=== PATIENT | male | born 1980 | race Caucasian/White ===

== ENCOUNTER 2019-05-02 02:55 | Emergency (ER) | payer MEDICAID ==
[~2019-05-02] VITALS: Ht 172.7 cm; Wt 82.1 kg
[2019-05-02 03:01] VITALS: BP 149/74
--- NOTE | 2019-05-02 03:05 | NUR ---
PT AMBULATED TO BED 2.
[2019-05-02] MEDS ORDERED: NACL 0.9% 1,000 ML IV ONE (03:30)
[2019-05-02] MEDS ORDERED: KETOROLAC 30 MG/ML VIAL IVP ONE (03:30)
[2019-05-02] MEDS ORDERED: ONDANSETRON 4 MG/2 ML VIAL IVP ONE (03:30)
--- NOTE | 2019-05-02 03:31 | NUR ---
38 Y/O MALE C/O SUDDEN ONSET EPIGASTRIC ABDOMEN PAIN ASSOCIATED N/V SINCE 190. 2 EPISODES OF VOMITTING. ABDOMINAL PAIN IS SHARP AND 10/10. PATIENT TOOK A MOTRIN WITH NO RELIEF. NKA NO PMH
[2019-05-02 03:45] LABS: BASOPHILS % (AUTO) 0.4 % (0.0-2.0); EOSINOPHILS # (AUTO) 0.1 K/uL (0-0.4); EOSINOPHILS % (AUTO) 0.8 % (0.0-4.0); HEMATOCRIT 46.2 % (36-52); HEMOGLOBIN 16.3 g/dL (12.0-18.0); LYMPHOCYTES # (AUTO) 1.4 K/uL (2.0-11.5); LYMPHOCYTES % (AUTO) 15.2 % (20.5-51.1); MEAN CORPUSCULAR HEMOGLOBIN 33 pg (27-31); MEAN CORPUSCULAR HGB CONC 35 g/dL (33-37); MEAN CORPUSCULAR VOLUME 94.8 fL (80-94); MONOCYTES # (AUTO) 0.3 K/uL (0.8-1.0); MONOCYTES % (AUTO) 3.6 % (1.7-9.3); NEUTROPHILS # (AUTO) 7.2 K/uL (1.8-7.7); PLATELET COUNT (AUTO) 142 K/uL (140-450); RED BLOOD CELL COUNT(AUTO) 4.88 MIL/uL (4.20-6.10); RED CELL DISTRIBUTION WIDTH 12.8 % (11.6-13.7)
[2019-05-02 04:16] LABS: ANION GAP 12.1 (8-16); CARBON DIOXIDE 29.1 mmol/L (21-32); CREATININE 1.2 mg/dL (0.7-1.3); POTASSIUM 3.2 mmol/L (3.5-5.1)
--- NOTE | 2019-05-02 04:20 | NUR ---
PT. TAKEN TO CT.
[2019-05-02 04:21] LABS: ALBUMIN 4.3 g/dL (3.4-5.0); TOTAL BILIRUBIN 0.5 mg/dL (0.0-1.0)
--- NOTE | 2019-05-02 04:59 | NUR ---
PT. IS SLEEPING AT THIS TIME. VSS. SIDE RAILS X1
[2019-05-02] MEDS ORDERED: MORPHINE SULFATE 2 MG/ML SYR IVP ONE (05:45)
[2019-05-02 06:29] VITALS: BP 122/78
--- NOTE | 2019-05-02 06:29 | NUR ---
Patient discharged with v/s stable. Written and verbal after care instructions given and explained. Patient alert, oriented and verbalized understanding of instructions. Ambulatory with steady gait. All questions addressed prior to discharge. ID band removed. Patient advised to follow up with PMD. Rx of MOTRIN 800MG AND ZOFRAN 4MG given. Patient educated on indication of medication including possible reaction and side effects. Opportunity to ask questions provided and answered.
--- NOTE | 2019-05-08 06:58 | NUR ---
LATE ENTRY: ON 05/02/19 AT 0606, 2MG/1ML OF MORPHINE PULLED FROM PYXIS 1 MG OF MORPHINE WASTED WITH JAVIER DE LA TORRE RN.
--- NOTE | 2019-05-08 07:06 | NUR ---
LATE ENTRY: 999ML IV BOLUS OF N/S FINISHED AT 0445. 999MLS OF NORMAL SALINE INFUSED.
== END 2019-05-02 06:29 | disposition home or self-care (01) ==
LOC: MED 02:55
DX: R10.9 Unspecified abdominal pain (principal); R11.2 Nausea with vomiting, unspecified
CPT/HCPCS: 36415; 71045; 74176; 80053; 83605; 84484; 85025; 85610; 85730; 87040; 93005; 96361; 96374; 96375; 99284; J1885; J2270; J2405; J7030

== ENCOUNTER 2019-08-11 06:36 | Inpatient (IN) | payer MEDICAID ==
[~2019-08-11] VITALS: Ht 175.3 cm; Wt 81.6 kg
[2019-08-11 06:40] VITALS: BP 144/87
--- NOTE | 2019-08-11 06:40 | NUR ---
TO BED # 06 AMBULATORY
--- NOTE | 2019-08-11 06:52 | NUR ---
Dr. Keller examining patient.
[2019-08-11] MEDS ORDERED: MORPHINE SULFATE 4 MG/ML SYR IVP ONE ×2 (06:55→09:30)
[2019-08-11] MEDS ORDERED: ONDANSETRON 4 MG/2 ML VIAL IVP ONE (06:55)
[2019-08-11] MEDS ORDERED: NACL 0.9% 1,000 ML IV SCH (06:55)
--- NOTE | 2019-08-11 07:00 | NUR ---
IV ACCESS ESTABLISHED, IVF OF NS WIDE OPEN STARTED, ORDERED MECICATIONS ADMINISTERED. LABS WERE DRAWN EARLIER BY THE CLOTHING SUPERVISOR. PATIENT MADE COMFORTALE. REPORT GIVEN TO THE ON COMING STAFF FOR CONTINUED EXPERT CARE.
[2019-08-11 07:25] LABS: BASOPHILS % (AUTO) 0.3 % (0.0-2.0); EOSINOPHILS # (AUTO) 0.1 K/uL (0-0.4); EOSINOPHILS % (AUTO) 1.2 % (0.0-4.0); HEMATOCRIT 48.4 % (36-52); HEMOGLOBIN 16.8 g/dL (12.0-18.0); LYMPHOCYTES # (AUTO) 1.4 K/uL (2.0-11.5); LYMPHOCYTES % (AUTO) 15.4 % (20.5-51.1); MEAN CORPUSCULAR HEMOGLOBIN 34 pg (27-31); MEAN CORPUSCULAR HGB CONC 35 g/dL (33-37); MEAN CORPUSCULAR VOLUME 96.6 fL (80-94); MONOCYTES # (AUTO) 0.5 K/uL (0.8-1.0); MONOCYTES % (AUTO) 5.3 % (1.7-9.3); NEUTROPHILS % (AUTO) 77.8 % (42.2-75.2); PLATELET COUNT (AUTO) 137 K/uL (140-450); RED BLOOD CELL COUNT(AUTO) 5.01 MIL/uL (4.20-6.10); RED CELL DISTRIBUTION WIDTH 12.9 % (11.6-13.7)
--- NOTE | 2019-08-11 07:49 | NUR ---
PT RESTING IN BED. STATED STILL HAVE PAIN AFTER PAIN MEDS. EXPLAINED TO PT IT TAKES TIME FOR PAIN MEDS TO KICK IN, PT VERBALIZED UNDERSTANDING, WILL CONTINUE TO MONITOR. Addendum: 08/11/19 at 0756 by LESLY ASKED PT FOR URINE SAMPLE. PT STATED HE DOES NOT HAVE URINE YET. WILL F/U.
[2019-08-11 07:50] LABS: ALBUMIN 3.7 g/dL (3.4-5.0); ANION GAP 12.7 (8-16); CARBON DIOXIDE 29.4 mmol/L (21-32); POTASSIUM 4.1 mmol/L (3.5-5.1); TOTAL BILIRUBIN 0.5 mg/dL (0.0-1.0)
--- NOTE | 2019-08-11 08:18 | NUR ---
Pt ambulated to restroom with steady gait. Pt provided with UA cup for specimen.
[2019-08-11 08:57] LABS: APPEARANCE,URINE CLEAR (CLEAR); BILIRUBIN,URINE NEGATIVE (NEGATIVE); BLOOD, URINE NEGATIVE (NEGATIVE); COLOR,URINE YELLOW (YELLOW); LEUKOCYTE ESTERASE ,URINE NEGATIVE (NEGATIVE); NITRITE, URINE NEGATIVE (NEGATIVE); UGLUCOSE NEGATIVE (NEGATIVE)
--- NOTE | 2019-08-11 10:11 | NUR ---
PT CAME BACK BY WHEELCHAIR PER TECH. PT STATED THE PAIN STILL 10/10 AFTER THE SECOND TIME MORPHINE 4 MG GIVEN. NOTIDIED .
[2019-08-11] MEDS ORDERED: HYDROmorphone PFS 2 MG/ML SYR IVP ONE (10:45)
[2019-08-11] MEDS ORDERED: PIPERACILLIN/TAZOBACTAM 4.5 GM in DEXTROSE 5% 100 ML IV ONE (10:45)
[2019-08-11] MEDS ORDERED: ONDANSETRON 4 MG/2 ML VIAL IVP PRN ×2 (10:55→21:05)
[2019-08-11] MEDS ORDERED: ACETAMINOPHEN 325 MG TAB PO PRN (10:55)
[2019-08-11] MEDS ORDERED: PIPERACILLIN/TAZOBACTAM 2.25 GM VIAL IV ONE (10:57)
[2019-08-11 11:35] VITALS: BP 107/57
--- NOTE | 2019-08-11 11:35 | NUR ---
Pt admitted to room 119B from ED via wheelchair. Received report from ED nurse Amirah. Pt amb to bed with steady gait, laid down right-side lying & guarding his abd. Pt states he has 5/10 cramping abd pain but is tolerable & "dont need any more pain meds right now." Pt [id number], able to follow commands. Oriented to room & unit. Able to return demonstrate proper use of call light & bed controls. Right AC IV intact & asymtomatic with Zosyn 50ml bag partially infused. Call light within reach. Will cont to monitor.
--- NOTE | 2019-08-11 11:35 | NUR ---
PT TRASNFERRED TO TELE 119 B. REPORT GIVEN TO MICAH. [facility] PT CALLED HIS TO LET HER KNOW SHE WILL STAY HOSPITAL . PT STATED HE DOES NOT HAVE PCP. VITAL STABLE.
[2019-08-11 12:16] LABS: BARBITURATE, URINE NEG. ng/ml (NEG <=200); BENZODIAZEPINE, URINE NEG. ng/mL (NEG <=200); CANNABINOID, URINE NEG. ng/mL (NEG <=50); COCAINE, URINE NEG. ng/mL (NEG <=300); OPIATE, URINE NEG. ng/mL (NEG <=2000); PHENCYCLIDINE SCREEN,URINE NEG. ng/mL (NEG <=25)
[2019-08-11 12:45] LABS: PROTHROMBIN TIME 9.7 secs (10.8-13.4)
--- NOTE | 2019-08-11 13:00 | NUR ---
PT RESTING IN BED. RESPIRATION ARE EVEN AND UNLABORED ON ROOM AIR, NO SIGNS OF DISTRESS. CALL LIGHT WITHIN REACH.
[2019-08-11 13:04] LABS: FREE T4 (FREE THYROXINE) 0.88 ng/dL (0.76-1.46); MAGNESIUM 1.7 mg/dL (1.8-2.4); PHOSPHORUS 2.5 mg/dL (2.5-4.9); THYROID STIMULATING HORMONE 1.54 uIU/mL (0.34-3.74)
[2019-08-11] MEDS: NACL 0.9% 1,000 ML IV SCH ×2 (14:40→23:50)
--- NOTE | 2019-08-11 15:20 | NUR ---
PT IN BED GRIMACING, STATES HE IS IN PAIN, 03/20. WILL MEDICATE PT WITH NORCO AND ZOFRAN FOR NAUSEA. AT BEDSIDE. CALL LIGHT WITHIN REACH.
[2019-08-11] MEDS: HYDROcodone/APAP 7.5/325 MG 1 TAB PO PRN (15:38)
[2019-08-11 16:00] VITALS: BP 109/57
[2019-08-11] MEDS ORDERED: MORPHINE SULFATE 4 MG/ML SYR IVP PRN (16:05)
--- NOTE | 2019-08-11 16:38 | NUR ---
WENT TO PT'S ROOM TO DO PAIN REASSESSMENT, PT ASLEEP. AT BEDSIDE. INDICATED SHE WANTED TO BE INFORMED OF THE PT'S CONDITION. AROSE PT TO ASK IF IT WAS OKAY TO SHARE INFORMATION. NOTIFIED DR. DAVILA THE PT'S FAMILY WANTED TO SPEAK WITH HER.
[2019-08-11] MEDS ORDERED: PANTOPRAZOLE 40 MG INJ VIAL IVP SCH (17:00)
--- NOTE | 2019-08-11 17:10 | NUR ---
GAVE PT HIS PROTONIX IVP, PT TOLERATED WELL, PT AWOKE TO ACKNOWLEDGE THE MEDICATION, BUT WENT BACK TO SLEEP. PT IS STABLE, RESPIRATION ARE EVEN AND UNLABORED ON ROOM AIR. AT THE BEDSIDE. CALL LIGHT WITHIN REACH.
--- NOTE | 2019-08-11 19:10 | NUR ---
GAVE BEDSIDE REPORT TO NIGHT NURSE, BATOOL, FOR CONTINUITY OF CARE. PT IS STABLE, RESPIRATION ARE EVEN AND UNLABORED ON ROOM AIR. CALL LIGHT WITHIN REACH.
--- NOTE | 2019-08-11 19:11 | NUR ---
RECEIVED BEDSIDE REPORT FROM AM SHIFT NURSE. FAMILY AT BEDSIDE. PATIENT IN BED WITH EYES CLOSED. NO SOB OR DISTRESS NOTED. ON ROOM AIR. IV ACCESS NOTED ON RIGHT AC 20 GAUGE, PATENT AND INTACT. SKIN IS INTACT. INITIAL ASSESSMENT DONE. BOARD UPDATED. BED IN LOW. CALL LIGHT PLACED WITHIN PT REACH. WILL CONTINUE TO MONITOR PATIENT.
[2019-08-11] MEDS ORDERED: PROPOFOL 200 MG/20 ML VIAL IV ONE (20:34)
[2019-08-11] MEDS ORDERED: DESFLURANE 240 ML BTL INH ONE (20:34)
[2019-08-11] MEDS ORDERED: ROCURONIUM 50 MG/5 ML VIAL IV ONE (20:34)
[2019-08-11] MEDS ORDERED: KETOROLAC 30 MG/ML VIAL IVP ONE (20:34)
[2019-08-11] MEDS ORDERED: SUCCINYLCHOLINE CHLORIDE 200 MG/10 ML VIAL IV ONE (20:34)
[2019-08-11] MEDS ORDERED: BUPIVACAINE-MPF/EPI 0.25% 30 ML VIAL INJ ONE (20:34)
--- NOTE | 2019-08-11 20:38 | NUR ---
PT TAKEN OUT OF UNIT TO OR FOR LAPAROSCOPIC APPENDECTOMY WITH DR. MONTEJO. AT THIS TIME.
[2019-08-11] MEDS ORDERED: MIDAZOLAM 2 MG/2 ML VIAL ONE (20:46)
[2019-08-11] MEDS ORDERED: fentaNYL 0.05 MG/ML VIAL ONE (20:47)
[2019-08-11] MEDS ORDERED: HYDROmorphone 1 MG/ML AMP IVP PRN (21:05)
--- NOTE | 2019-08-11 22:55 | NUR ---
PT RETURNED BACK TO UNIT AT THIS TIME. REPORT GIVEN BY PAVAN. PT IS AWAKE AND STABLE. POST OP VITAL SIGNS MONITORING STARTED AT THIS TIME. WILL CONTINUE TO MONITOR PATIENT.
[2019-08-12 00:05] VITALS: BP 122/70
--- NOTE | 2019-08-12 00:10 | NUR ---
VITALS TAKEN AT THIS TIME.NO DISTRESS NOTED. VISIBLE CHEST RISE AND FALL NOTED. WILL CONTINUE TO MONITOR PATIENT.
[2019-08-12] MEDS: DOCUSATE SODIUM 100 MG GELCAP PO SCH ×2 (00:15→09:42)
--- NOTE | 2019-08-12 02:40 | NUR ---
ROUNDS DONE. VISIBLE CHEST RISE AND FALL NOTED. WILL CONTINUE TO MONITOR PATIENT.
[2019-08-12] MEDS: NACL 0.9% 1,000 ML IV SCH (02:51)
--- NOTE | 2019-08-12 05:10 | NUR ---
ROUNDS DONE. VISIBLE CHEST RISE AND FALL NOTED. WILL CONTINUE TO MONITOR PATIENT.
--- NOTE | 2019-08-12 07:20 | NUR ---
PT IN STABLE CONDITION. CALL LIGHT WITHIN PATIENT REACH. ENDORSED TO CLEO FOR CONTINUITY OF CARE.
--- NOTE | 2019-08-12 07:22 | NUR ---
RECEIVED BEDSIDE REPORT FROM FOOD AND BEVERAGE INTERN NURSE FOR CONTINUITY OF CARE. PATIENT AWAKE AND RESTING ON BED AT THIS TIME. RESPIRATION EVEN AND UNLABORED ON RA. STATED PAIN IS WITHIN HIS TOLERABLE LIMIT AND ONLY WHEN HE AMBULATE IT WILL HURT. DENIED NAUSEA, VOMITING AND SOB. NO SIGN OF DISTRESS NOTED. IV ON RAC 20G, CLEAN AND INTACT, INFUSING PER MD ORDER. PATIENT IS CONTINENT AND ABLE TO AMBULATE WITH STANDBY ASSIST. 3 BANDAGES ON ABD NOTED, CLEAN AND DRY. DISCUSSED PLAN OF CARE WITH PATIENT AND PATIENT VERBALIZED OK. SAFETY MEASURES IN PLACE. BED IN LOW POSITION AND CALL LIGHT WITHIN REACH. INSTRUCTED PATIENT TO USE THE CALL LIGHT FOR ANY ASSISTANCE AND PATIENT WAS AWARE.
[2019-08-12 07:29] LABS: BASOPHILS % (AUTO) 0.1 % (0.0-2.0); HEMOGLOBIN 14.3 g/dL (12.0-18.0); LYMPHOCYTES # (AUTO) 0.7 K/uL (2.0-11.5); LYMPHOCYTES % (AUTO) 7.7 % (20.5-51.1); MEAN CORPUSCULAR HEMOGLOBIN 33 pg (27-31); MEAN CORPUSCULAR HGB CONC 34 g/dL (33-37); MEAN CORPUSCULAR VOLUME 96.5 fL (80-94); MONOCYTES # (AUTO) 0.4 K/uL (0.8-1.0); MONOCYTES % (AUTO) 4.6 % (1.7-9.3); NEUTROPHILS # (AUTO) 7.9 K/uL (1.8-7.7); NEUTROPHILS % (AUTO) 87.6 % (42.2-75.2); PLATELET COUNT (AUTO) 129 K/uL (140-450); RED BLOOD CELL COUNT(AUTO) 4.35 MIL/uL (4.20-6.10); RED CELL DISTRIBUTION WIDTH 12.8 % (11.6-13.7)
[2019-08-12 07:53] LABS: CHOL/HDL RATIO 4.5 (1-4.5)
[2019-08-12 08:00] VITALS: BP 121/61
--- NOTE | 2019-08-12 08:04 | NUR ---
INFORMED PATIENT THAT HE WILL BE DISCHARGE FROM THE HOSPITAL TODAY, AND PATIENT WAS AWARE. PATIENT SAID "I WILL FIND OUT WHAT TIME MY RIDE WILL BE HERE." EXPLAINED TO PATIENT THAT DISCHARGE DOCUMENT WILL BE PREPARED.
[2019-08-12] MEDS ORDERED: PANTOPRAZOLE 40 MG TABEC PO SCH (09:00)
--- NOTE | 2019-08-12 09:00 | NUR ---
PATIENT HAS BEEN SCREENED AND CATEGORIZED LOW NUTRITION RISK. PATIENT WILL BE SEEN WITHIN 7 DAYS OF ADMISSION. 08/17/[address]
[2019-08-12] MEDS ORDERED: INFLUENZA VACCINE QUAD 0.5 ML SYR IMVAC PRN (09:20)
[2019-08-12] MEDS: POTASSIUM CHL 20MEQ/D5-NS 1,000 ML IV SCH ×2 (09:48)
--- NOTE | 2019-08-12 09:49 | NUR ---
ADMINISTERED SCHEDULED MEDS PER MD ORDER, MEDS ED PROVIDED AND PATIENT VERBALIZED UNDERSTANDING. PATIENT TOLERATED MEDS WELL. HOLD HEPARIN SUBQ DUE TO LOW PLT, WILL INQUIRY MD ON REGARDS. PATIENT IS RESTING ON BED AT THIS TIME. AWAITING FOR FAMILY ARRIVE FOR DC. DENIED PAIN, NAUSEA, AND SOB. NO SIGNS OF DISTRESS NOTED. SAFETY MEASURES IN PLACE. BED IN LOW POSITION AND CALL LIGHT WITHIN REACH. INSTRUCTED PATIENT TO USE THE CALL LIGHT FOR ANY ASSISTANCE AND PATIENT WAS AWARE.
[2019-08-12] MEDS ORDERED: MAGNESIUM OXIDE 400 MG TAB PO SCH (10:00)
--- NOTE | 2019-08-12 10:07 | NUR ---
INFORMED DR RUSHING THAT PATIENT'S PLT IS 129 FROM AM LAB. PER DR RUSHING, IT'S OK TO ADMINISTER HEPARIN. ADMINSITERED PER MD ORDER, MED EDU PROVIDED TO PATIENT AND PATIENT SAID OK. PATIENT TOLERATED SUBQ WELL. NO SIGNS OF DISTRESS NOTED. PATIENT IS RESTING ON BED AT THIS TIME. BED IN LOW POSITION AND CALL LIGHT WITHIN REACH.
[2019-08-12] MEDS ORDERED: IBUP-2213 PO (10:53)
[2019-08-12] MEDS ORDERED: DOCU-299 PO (10:53)
--- NOTE | 2019-08-12 11:16 | NUR ---
PATIENT LYING IN BED ALERT AND WITH FAMILY AT BEDSIDE. PATIENT CALLED AND COMPLAINED OF MODERATE PAIN. PRN PAIN MEDICATION ADMINISTERED PER MD ORDERS. EDUCATED PATIENT ON MEDICATION REGIME. PATIENT ABLE TO VERBALIZE UNDERSTANDING AND TEACH BACK. PT REQUESTED FLU SHOT PRIOR TO DISCHARGE. ASSESSED PATIENT FOR FLU VACCINE ALLERGIES. NO ALLERGIES TO PREVIOUS FLU VACCINATIONS. FLU VACCINATION ADMINISTERED PER MD ORDER. PATIENT TOLERATED WELL. EDUCATED PATIENT ON FLU VACCINE REGIMEN. PATIENT ABLE TO VERBALIZE UNDERSTANDING AND TEACH BACK. PATIENT REQUESTED TO DISCHARGE AFTER LUNCH. SAFETY MEASURES: HOB ELEVATED, BED IN LOWEST POSITION, AND CALL LIGHT WITHIN REACH. WILL CONTINUE TO MONITOR.
[2019-08-12] MEDS: HYDROcodone/APAP 7.5/325 MG 1 TAB PO PRN (11:24)
--- NOTE | 2019-08-12 12:48 | NUR ---
UPON ARRIVAL, PATIENT WAS DRESSED AND SITTING ON THE SIDE OF THE BED. RESPIRATIONS EVEN AND UNLABORED WITH NO SOB OR RESPIRATORY DISTRESS. PATIENT IS AWARE DISCHARGE. PT RECEIVED DISCHARGE PACKET AND DISCHARGE EDUCATION INSTRUCTIONS WERE PROVIDED TO PT. WENT OVER EMERGENCY REGIMEN WITH PT. EDUCATED PATIENT ON WOUND CARE AND PROVIDED WOUND CARE SUPPLIES. DISCHARGE WOUND PICTURE TAKEN. PT ABLE TO VERBALIZE UNDERSTANDING AND TEACH BACK. IV CANNULA WAS INTACT AND REMOVED. PT TOLERATED WELL. ID BANDS WERE REMOVED. PT GATHERED ALL OF HIS BELONGINGS. PATIENT RECEIVED HIS PRESCRIPTION AND WILL GET FROM HIS PHARMACY. PT WAS WHEELED OUT TO THE FRONT LOBBY VIA WHEELCHAIR WITH AND MOTHER AT BEDSIDE. PT ASSISTED INTO PRIVATE VEHICLE. PT IS GOING HOME ACCOMPANIED WITH AND MOTHER. PT IS IN STABLE CONDITION.
== END 2019-08-12 12:48 | disposition home or self-care (01) | DRG 233 ==
LOC: MED 06:36 → MTU 10:58
PROVIDERS: ADMIT General Practice; ATTEND General Practice
PROC: 0DTJ4ZZ Resection of Appendix, Percutaneous Endoscopic Approach (ICD-10-PCS; principal; 2019-08-11 20:00)
DX: K35.32 Acute appendicitis with perforation, localized peritonitis, and gangrene, without abscess (principal); J98.11 Atelectasis; K80.20 Calculus of gallbladder without cholecystitis without obstruction; K57.90 Diverticulosis of intestine, part unspecified, without perforation or abscess without bleeding; N40.0 Benign prostatic hyperplasia without lower urinary tract symptoms
CPT/HCPCS: 36415; 76705; 80053; 80305; 81003; 82150; 82374; 83036; 83690; 83735; 83880; 84100; 84439; 84443; 84484; 85025; 85610; 85730; 87040; 87081; 88304; 96361; 96374; 96375; 96376; 99285; C9113; J0330; J1170; J1644; J1885; J2250; J2270; J2405; J2543; J2704; J3010; J3490; J7030; Q0092

== ENCOUNTER 2021-09-10 07:54 | Emergency (ER) | payer MEDICAID, SELFPAY ==
[~2021-09-10] VITALS: Ht 175.3 cm; Wt 81.6 kg
[~2021-09-10 07:54] MED LIST: DOCU-299 PO; IBUP-2213 PO
[2021-09-10 08:10] VITALS: BP 152/99
--- NOTE | 2021-09-10 09:49 | NUR ---
PT SEEN BY DR ARGUELLES, NO NURSING INTERVENTIONS PROVIDED
--- NOTE | 2021-09-10 09:50 | NUR ---
PT CLEARED FOR DISCHARGE BY DR ARGUELLES. PT LEFT WITHOUT DISCHARGE PAPERWORK.
== END 2021-09-10 09:50 | disposition home or self-care (01) ==
LOC: MED 07:54
DX: U07.1 COVID-19 (principal); Z79.899 Other long term (current) drug therapy
CPT/HCPCS: 99282